=== PATIENT | female | born 1960 | race Caucasian/White ===

== ENCOUNTER 2022-01-27 08:05 | Inpatient (IN) | payer OTHER ==
[~2022-01-27] VITALS: Ht 165.1 cm; Wt 63.7 kg
[2022-01-27 09:02] LABS: BASOPHILS ABSOLUTE AUTO 0.03 K/mm3 (0.00-0.23); BASOPHILS PERCENT AUTO 1 % (0-2); EOSINOPHILS ABSOLUTE AUTO 0.05 K/mm3 (0.00-0.68); EOSINOPHILS PERCENT AUTO 1 % (0-6); Hematocrit 38.2 % (33.0-51.0); Hemoglobin 12.7 g/dL (11.5-16.0); IMMATURE GRAN PERCENT AUTO 0 % (0-1); LYMPHOCYTES ABSOLUTE AUTO 1.29 K/mm3 (0.84-5.20); LYMPHOCYTES PERCENT AUTO 27 % (21-46); MONOCYTES PERCENT AUTO 8 % (4-13); Mean Corpuscular HGB 30.5 pg (26.0-34.0); Mean Corpuscular HGB Conc 33.2 g/dL (31.5-36.5); Mean Corpuscular Volume 92 fL (80-100); Mean Platelet Volume 9.3 fL (9.1-12.4); NEUTROPHILS ABSOLUTE AUTO 3.05 K/mm3 (1.96-9.15); NEUTROPHILS PERCENT AUTO 63 % (41-73); Platelet Count 248 K/mm3 (150-400); RDW Coefficient Variation 13.2 % (11.7-14.2); RDW Standard Deviation 44.7 fL (35.1-46.3); Red Blood Cell Count 4.16 M/mm3 (3.80-5.20); White Blood Cell Count 4.82 K/mm3 (4.00-11.30)
[2022-01-27] MEDS ORDERED: TRAZ100 PO (09:13)
[2022-01-27] MEDS ORDERED: Budeprion Xl300 MG PO (09:13)
[2022-01-27] MEDS ORDERED: Atarax10 MG PO (09:14)
[2022-01-27] MEDS ORDERED: SYNTHROID PO (09:14)
[2022-01-27 09:15] LABS: Albumin, Blood 3.4 g/dL (3.4-5.0); Albumin/Globulin Ratio 1.1 (0.8-1.8); Bilirubin, Total 0.5 mg/dL (0.1-1.0); Bun/Creatinine Ratio 12.3 (12.0-20.0); Calcium, Blood 8.9 mg/dL (8.5-10.1); Creatinine, Blood 1.06 mg/dL (0.40-1.00); Potassium, Blood 4.1 mmol/L (3.5-5.5); Total Protein, Blood 6.4 g/dL (6.4-8.2)
[2022-01-27] MEDS ORDERED: LORA10ER PO (15:59)
[2022-01-27] MEDS ORDERED: IPRATROPIUM BRO30 ML (16:01)
--- NOTE | 2022-01-27 16:51 | NUR ---
PCU ADMIT: ADMIT AT 1537. ALERT AND ORIENTED X4. NEURO WNL. DENIES NUMBNESS/TINGLING. ON ROOM AIR SATING HIGH 90'S. LUNGS SOUNDING CLEAR. TELE SHOWING SINUS PERLA WITH 2ND DEGREE BLOCK. HR 30-50'S. POSSIBLE PACER IN AM. NPO AFTER MIDNIGHT. POST ANGIO AT THIS TIME. RIGHT RADIAL AND RIGHT GROIN SITE. RIGHT RADIAL WNL WITH TR BAND AND ARM BOARD IN PLACE. SOFT/NONTENDER. NO SIGNS OF HEMATOMA. WILL START REMOVING AIR AROUND 1700. STRONG RADIAL/PEDAL PULSES. RIGHT GROIN SITE WITH BRUISING DISTAL FROM SITE THAT REMAINS UNCHANGED AT THIS POINT. PRESSURE HELD FOR 10 MIN UPON ARRIVAL. SLIGHT DRAINAGE ON DRESSING REMAINS UNCHANGED. PATIENT DENIES PAIN. LAYING FLAT FOR 5 HOURS, SEE ORDERS FROM CARDIOLOGY. MED REC AND ADMIT COMPLETED. ORIENTED TO ROOM AND UNIT. POST OP VITALS IN PROGRESS. REG DIET ORDERED, SIPPING WATER AND EATING FINGER FOOD SNACKS. AT BEDSIDE. NORMAL SALINE INFUSING AT 100 ML/HR X1 BAG. CALL LIGHT IN REACH.
--- NOTE | 2022-01-27 17:24 | NUR ---
DR. FONTAINE IN TO DISCUSS PACEMAKER WITH PATIENT. THIS RN IN TO CONSENT. PLAN FOR DR. MUELLER TO PLACE PACER IN AM. PATIENT WILL BE NPO AFTER MIDNIGHT EXCEPT FOR MEDS. VITAL SIGNS REMAIN STABLE. RIGHT RADIAL SITE WNL. SLOWLY REMOVING AIR FROM TR BAND, ARM BOARD IN PLACE. RIGHT GROIN REMAINS UNCHANGED. HEMATOMA DISTAL TO SITE. 2ND RN KRISTIE IN TO ASSESS RIGHT GROIN. THIS RN WILL CONTINUE TO MONITOR SITE. POST OP VITALS REMAIN IN PROGRESS. STRONG DISTAL PULSES. CALL LIGHT IN REACH. AT BEDSIDE.
--- NOTE | 2022-01-27 18:21 | NUR ---
SHIFT SUMMARY: SEE PREVIOUS NOTES FOR UPDATES. PATIENT REMAINS LAYING FLAT AT THIS TIME. GROIN SITE REMAINS UNCHANGED. RIGHT RADIAL SITE UNCHANGED, TR BAND AND ARM BOARD IN PLACE. REMOVING AIR FROM TR BAND IN 15 MIN INTERVALS. 2 PERSON ASSIST TO LOG ROLL FOR BEDPAN. NORMAL SALINE INFUSING AT 50 ML/HR. TELE CONTINUES TO SHOW SINUS PERLA WITH 2ND DEGREE BLOCK, HR 30-50'S. DENIES CHEST PAIN/PRESSURE. ATROPINE AND EPI AT BEDSIDE. CALL LIGHT IN REACH.
--- NOTE | 2022-01-27 21:45 | NUR ---
Assumed care 1900. Pt VSS on RA. A&O. Right radial still had TR band that was deflated in place. TR band removed at 2099 without difficulty. Right femoral site has some bruising, but no hematoma felt. Pt remained flat for 5 hours and at 1999 sat up to have dinner, site remained free of hematoma. Will continue to monitor.
--- NOTE | 2022-01-28 03:27 | NUR ---
Pt was sustaining in 30s, VSS on RA and pt states she is not symptomatic. Will continue to monitor and prn meds at bedside as needed.
[2022-01-28 04:26] LABS: Hematocrit 33.7 % (33.0-51.0); Hemoglobin 10.8 g/dL (11.5-16.0); Mean Corpuscular HGB 30.3 pg (26.0-34.0); Mean Corpuscular Volume 95 fL (80-100); Mean Platelet Volume 9.7 fL (9.1-12.4); Platelet Count 201 K/mm3 (150-400); RDW Coefficient Variation 13.4 % (11.7-14.2); Red Blood Cell Count 3.56 M/mm3 (3.80-5.20); White Blood Cell Count 6.92 K/mm3 (4.00-11.30)
--- NOTE | 2022-01-28 04:45 | NUR ---
Vice Provost Note: Pt A&O, pleasant with cares. Pt denied any dizziness/lightheadedness. Tele: HR 30-50s mainly. Towards the end of the shift sustaining 30s, VSS on RA and pt denied any symptoms. PRN meds at bedside, but haven't given due to not symptomatic at this time. Right radial site looks good, no hematoma and the TR band was removed without any complications. The splint is still in place. Rigth radial site is bruised with the small dried blood that was on dressing prior to leaving the HC. Site is soft and nontender. Pulses good in all extremities. 1L of NS was finished and pt was saline locked. PRN atarax given to help with sleep. Pt slept well overnight.
[2022-01-28 04:47] LABS: Anion Gap 5 mmol/L (6-16); Blood Urea Nitrogen 10 mg/dL (8-24); Bun/Creatinine Ratio 10.9 (12.0-20.0); CHOL/HDL RATIO 2.5; CO2, Blood 26 mmol/L (21-32); Chloride, Blood 112 mmol/L (98-108); Cholesterol 135 mg/dL (50-200); Creatinine, Blood 0.92 mg/dL (0.40-1.00); Glomerular Filtration Rate >60 (60-); Glucose, Blood 83 mg/dL (70-99); HDL Cholesterol 54 mg/dL (>39); LDL/HDL RATIO 1.2; Low Density Lipoprotein Chol 64 mg/dL (0-110); Potassium, Blood 4.1 mmol/L (3.5-5.5); Sodium, Blood 143 mmol/L (136-145); Triglycerides 83 mg/dL (30-160); Very Low Density Lipoprot Chol 16 mg/dL (6-32)
--- NOTE | 2022-01-28 04:53 | NUR ---
Pt has been NPO since midnight, EKG completed this AM and placed in paperchart.
--- NOTE | 2022-01-28 12:45 | NUR ---
PT RETURNED FROM PACEMAKER PROCEDURE APROX 1230. SITE TO L CHEST WITH DRESSING C/D/I, PT REPORTS FULL SENSATION TO L ARM. 100% PACED ON TELEMETRY. PT REPORTS NO PAIN AT PACEMAKER SITE, PACEMAKER PRECAUTIONS REVIEWED WITH PT INCLUDING SLING USE AND LIMITED ROM WITH L ARM, PT VERBALIZES UNDERSTANDING. SLING APPLIED TO L ARM. POST OP VITAL SIGNS IN PROGRESS. PT MEDICATED FOR HEADACH PER EMAR. PT'S AT BEDSIDE, CALL LIGHT IN REACH, PT IS COMPLETELY ALERT AND ORIENTED, LUNCH PROVIDED. WILL CONTINUE TO MONITOR.
--- NOTE | 2022-01-28 20:34 | NUR ---
Assumed care 1900 VSS on RA. Left side of chest has dressing in place which is dry, clean and intact. Right radial site free of hematoma. Right groin site is bruised, but free of hematoma. Pain in left side of chest where incision site is, prn tylenol w/ codiene given. Sling and ice pack in place. Will continue to montitor.
--- NOTE | 2022-01-29 04:20 | NUR ---
Extension Specialist Note: Pt is A&O, pleasant with cares. VSS on RA. Pt up independently in room. Left side of chest has pacer incision site with dressing clean, dry and intact. Pt wore sling most of the night. Ice and tylenol #3 used for pain relief. Right radial site looks great. Right groin site is bruised, but no hematoma felt. Tele: V-paced 60-70s. PRN atarax given.
--- NOTE | 2022-01-29 07:20 | NUR ---
Receive report from Noc RN. Patient is awake and oriented sitting up in bed. She is on RA and sats 98%. She has 20ga IV to RAC, dressing inbtact and site WNL's and is flushed and SL'd. She has slight temp 99.7 and left chest pacer site pain and medicated with tylenol #3. Right TRband site has clear opsite covering with very small amount of bruising and no hematoma. Right groin site also has clear op site over cath site and is soft and palpable with light purple bruising about size of patients hand and is tender to palpation. She has Left upper chest pacer site that has clear opsite with 2x2 gauze under op site, tender to palpation, no swelling. Meds given per NOV.
--- NOTE | 2022-01-29 09:30 | NUR ---
Patient independent in room and to bathroom. She tolerated meds and breakfast well. Awake watching TV in Room. No other significant changes.
--- NOTE | 2022-01-29 11:39 | NUR ---
Patient pacer interogated and 2 view chest xray has been done. Dr Bryant has been notified. Patient remains on RA and is independent in room .
[2022-01-29] MEDS ORDERED: FAMO20 PO (12:22)
[2022-01-29] MEDS ORDERED: CODACE30 PO (12:22)
--- NOTE | 2022-01-29 12:37 | NUR ---
Dr Hoskins by and and is discharging patient. She received written discharge instructions for TR band site, Right groin site and pacer site as well and written appointments for follow up. She returned acknowledgement and understanding of information. She received script for pain medication as needd. She IV pulled intact and site WNL's. She will be awaiting ride from .
== END 2022-01-29 13:55 | disposition home or self-care (01) | DRG 244 ==
LOC: ER 08:05 → PCU 08:06
PROVIDERS: Emergency Medicine; Internal Medicine Cardiovascular Disease; ADMIT Internal Medicine
PROC: 4A023N7 Measurement of Cardiac Sampling and Pressure, Left Heart, Percutaneous Approach (ICD-10-PCS; 2022-01-27)
PROC: B2111ZZ Fluoroscopy of Multiple Coronary Arteries using Low Osmolar Contrast (ICD-10-PCS; 2022-01-27)
PROC: 0JH606Z Insertion of Pacemaker, Dual Chamber into Chest Subcutaneous Tissue and Fascia, Open Approach (ICD-10-PCS; principal; 2022-01-28)
PROC: 02HK3JZ Insertion of Pacemaker Lead into Right Ventricle, Percutaneous Approach (ICD-10-PCS; 2022-01-28)
PROC: 02H63JZ Insertion of Pacemaker Lead into Right Atrium, Percutaneous Approach (ICD-10-PCS; 2022-01-28)
DX: I44.1 Atrioventricular block, second degree (principal); R07.9 Chest pain, unspecified; E03.9 Hypothyroidism, unspecified; N18.30 Chronic kidney disease, stage 3 unspecified; D63.1 Anemia in chronic kidney disease; K21.9 Gastro-esophageal reflux disease without esophagitis; F32.A Depression, unspecified; E78.5 Hyperlipidemia, unspecified; F41.9 Anxiety disorder, unspecified; Z88.1 Allergy status to other antibiotic agents; Z79.899 Other long term (current) drug therapy
CPT/HCPCS: 33208; 36415; 71045; 71046; 76937; 80048; 80053; 80061; 82947; 83735; 83880; 84443; 84484; 85025; 85027; 85347; 85379; 86850; 86900; 86901; 93005; 93010; 93306; 93454; 99152; 99153; 99285-25; A9270; C1769; C1781; C1785; C1894; C1898; G0378; J0690; J1580; J1644; J2250; J3010; J7030; J7040; J7120; Q9967